=== PATIENT | male | born 1970 | race African-American/Black ===

== ENCOUNTER 2019-03-31 22:14 | Emergency (ER) | payer SELFPAY ==
--- NOTE | 2019-03-31 22:49 | ER Document Report ---
ED General - General Chief Complaint: Possible Overdose Stated Complaint: UNRESPONSIVE Time Seen by Provider: 03/31/19 22:35 Primary Care Provider: [facility] [Provider Group] - Follow up as needed [facility] [Provider Group] - Follow up in 1 week Notes: Patient is a 48-year-old male that comes to the emergency department for chief complaint of an episode where his states he was pointing at his throat, then he appeared to pass out, she states she caught him and called the ambulance. She denies him falling to the ground. Ambulance report that he was not responding to them by answering, his pupils seemed somewhat pinpoint so they gave him 4 mg of Narcan, they state that this seemed to help some but patient is still not answering any questions. On my evaluation patient is sleeping but arousable, when I speak to him he will answer by nodding yes or no, I asked if he is trying to speak, he nods yes, I asked him if his throat hurts, he shakes his head no, I asked him if it is difficult to breathe he shakes his head no. He is not drooling. His states that he had a couple of beers today, at bedside denies that he uses any drugs or has known medical problems. TRAVEL OUTSIDE OF THE [place] IN LAST 30 DAYS: No - Related Data Allergies/Adverse Reactions: No Known Drug Allergies Allergy (Verified 03/31/19 22:55) Past Medical History - General Information source: Relative - Social History Smoking Status: Never Smoker Frequency of alcohol use: None Drug Abuse: None Lives with: Family Family History: Reviewed & Not Pertinent Review of Systems - Review of Systems Constitutional: No symptoms reported EENT: See HPI Cardiovascular: See HPI Respiratory: No symptoms reported Gastrointestinal: No symptoms reported Genitourinary: No symptoms reported Male Genitourinary: No symptoms reported Musculoskeletal: No symptoms reported Skin: No symptoms reported Hematologic/Lymphatic: No symptoms reported Neurological/Psychological: See HPI Physical Exam - Vital signs Vitals: Temp Resp Pulse Ox 98.6 F 25 H 100 03/31/19 22:22 03/31/19 22:22 03/31/19 22:22 - Notes Notes: GENERAL: Alert, anxious, following directions but not speaking HEAD: Normocephalic, atraumatic. EYES: Pupils equal, round, and reactive to light. Extraocular movements intact. ENT: Oral mucosa moist, tongue midline. Oropharynx unremarkable. Airway patent. Nares patent, no nasal septal hematoma, TM's intact. NECK: Full range of motion. Supple. Trachea midline. LUNGS: Clear to auscultation bilaterally, no wheezes, rales, or rhonchi. No respiratory distress. HEART: Regular rate and rhythm. No murmur ABDOMEN: Soft, non-tender. Non-distended. Bowel sounds present in all 4 quadrant s. GENITOURINARY: Deferred EXTREMITIES: Moves all 4 extremities spontaneously. No edema, normal radial and dorsalis pedis pulses bilaterally. No cyanosis. BACK: Complains of palpation over the lumbar area generally but there is no trauma to the area noted. Normal cervical and thoracic exams. No saddle anesthesia, normal distal neurovascular exam. NEUROLOGICAL: Alert Cranial nerves II through XII grossly intact. PSYCH: Anxious SKIN: Warm, dry, normal turgor. No rashes or lesions noted. Course - Re-evaluation Re-evalutation: Patient's airway appears patent without soft tissue swelling suggesting anaphylaxis. Patient is taking good full breaths, he is not hypoxic or tachypneic, however he does appear to be trying to speak and he began to be tearful when he appeared to not be able to speak. He also appears very anxious. He has not a remaining neurological exam is normal. He is responsive and follows all directions. CAT scan of the head will be performed along with general work-up for syncope. 04/01/19 EKG showing sinus rhythm at a rate of 59. There is some ST elevation in the anterior leads, could be J-point elevation with some LVH. Patient did not have any chest pain, patient denies chest pain on exam. This was repeated after discussion with Dr. helms it, repeat does not show any concerning change, is s lightly different but appears to be only from lead placement. Troponin was negative. Again patient did not complain of any chest pain on my evaluations or before event. CBC unremarkable, chemistry unremarkable, urine drug screen is negative, CAT scan of the head was negative, chest x-ray unremarkable. Patient is very intoxicated with alcohol of 250. I went back into the room and now patient is speaking. I discussed work-up, discussed EKG, discussed alcohol level. Patient agreed when I reported his alcohol level, appeared very surprised. I suspect this alcohol intoxication was strongly contributing to the patient's behavior. Patient has received IV fluids and has been monitored with reevaluation's. He now is acting normal. He and are both requesting to go home. He has no current complaints other than back pain from lying in bed. He had asked for an x-ray and this was performed and showed some arthritis but was otherwise unremarkable, his back pain examination is very unremarkable. Discussed return precautions, they state satisfaction and agreement. - Vital Signs Vital signs: Temp Pulse Resp BP Pulse Ox 98.7 F 65 18 130/76 H 95 04/01/19 01:00 04/01/19 01:00 04/01/19 01:00 04/01/19 01:00 04/01/19 01:00 - Laboratory Result Diagrams: 03/31/19 22:22 03/31/19 22:22 Laboratory results interpreted by me: 03/31/19 03/31/19 22:22 22:22 MCV 99 H Seg Neutrophils % 38.6 L Lymphocytes % 50.9 H Carbon Dioxide 21 L Discharge - Discharge Clinical Impression: Alcohol intoxication Qualifiers: Complication of substance-induced condition: with unspecified complication Qualified Code(s): F10.929 - Alcohol use, unspecified with intoxication, unspecified Back pain Qualifiers: Back pain location: low back pain Chronicity: acute Back pain laterality: midline Sciatica presence: without sciatica Qualified Code(s): M54.5 - Low back pain Episode of syncope Qualifiers: Syncope type: unspecified Qualified Code(s): R55 - Syncope and collapse Condition: Stable Disposition: HOME, SELF-CARE Additional Instructions: Avoid drinking alcohol to intoxication. Take [id number] anti-inflammatories or acetaminophen for back pain if needed, you do have arthritis in your back. Follow-up with primary care for additional evaluation and management. Return if you worsen including passing out again, pain in your chest, severe pain in any location, vomiting, or any other concerning symptoms. Forms: Return to Work Referrals: [facility] [Provider Group] - Follow up as needed [facility] [Provider Group] - Follow up in 1 week
[2019-03-31 22:53] LABS: ABSOLUTE BASOPHILS # (AUTO) 0.1 10^3/uL (0.0-0.2); ABSOLUTE EOSINOPHILS # (AUTO) 0.2 10^3/uL (0.0-0.6); ABSOLUTE LYMPHOCYTES (AUTO) 4.1 10^3/uL (0.5-4.7); ABSOLUTE MONOCYTES (AUTO) 0.6 10^3/uL (0.1-1.4); ABSOLUTE NEUT (AUTO) 3.1 10^3/uL (1.7-8.2); BASOPHILS % (AUTO) 0.7 % (0-2); EOSINOPHILS % (AUTO) 2.5 % (0-6); HEMATOCRIT 44.5 % (37.9-51.0); HEMOGLOBIN 15.1 g/dL (13.5-17.0); LYMPHOCYTES % (AUTO) 50.9 % (13-45); MEAN CORPUSCULAR HEMOGLOBIN 33.3 pg (27.0-33.4); MEAN CORPUSCULAR HGB CONC 33.8 g/dL (32.0-36.0); MEAN CORPUSCULAR VOLUME 99 fl (80-97); MONOCYTES % (AUTO) 7.3 % (3-13); PLATELET COUNT 255 10^3/uL (150-450); RED BLOOD COUNT 4.52 10^6/uL (4.35-5.55); RED CELL DISTRIBUTION WIDTH 13.9 % (11.5-14.0); SEGMENTED NEUTROPHILS % (AUTO) 38.6 % (42-78); TOTAL CELLS COUNTED % (AUTO) 100 %
[2019-03-31 22:58] LABS: ALANINE AMINOTRANSFERASE 52 U/L (21-72); ALBUMIN 4.7 g/dL (3.5-5.0); ALCOHOL 250 mg/dL (NONE DETECTED); ALKALINE PHOSPHATASE 66 U/L (38-126); ANION GAP 17 (5-19); ASPARTATE AMINO TRANSFERASE 51 U/L (17-59); BILIRUBIN,DIRECT 0.2 mg/dL (0.0-0.4); BILIRUBIN,TOTAL 0.2 mg/dL (0.2-1.3); BLOOD UREA NITROGEN 14 mg/dL (7-20); CARBON DIOXIDE 21 mmol/L (22-30); CHLORIDE 100 mmol/L (98-107); GLUCOSE 98 mg/dL (75-110); POTASSIUM 3.8 mmol/L (3.6-5.0); SODIUM 137.6 mmol/L (137-145); TOTAL PROTEIN 7.7 g/dL (6.3-8.2)
[2019-03-31 23:08] LABS: URINE AMPHETAMINES SCREEN NEGATIVE; URINE BARBITURATES SCREEN NEGATIVE; URINE BENZODIAZEPINES SCREEN NEGATIVE; URINE COCAINE SCREEN NEGATIVE; URINE MARIJUANA (THC) SCREEN NEGATIVE; URINE METHADONE SCREEN NEGATIVE; URINE PHENCYCLIDINE SCREEN NEGATIVE
[2019-03-31] MEDS ORDERED: NORMAL SALINE 1000 ML 1,000 ML IV ONE (23:09)
--- NOTE | 2019-03-31 23:19 | RADIOLOGY REPORT (SQ) ---
EXAM DESCRIPTION: CT HEAD WITHOUT IV CONTRAST COMPLETED DATE/TME: 03/31/2019 22:44 CLINICAL HISTORY: 48 years, Male, AMS COMPARISON: None Available. Technique: Contiguous axial images of the brain were obtained without the administration of intravenous contrast. Coronal and sagittal reformats obtained and reviewed. This exam was performed according to our departmental dose-optimization program which includes use of Automated Exposure Control, adjustment of the mA and/or kV according to patient size and/or use of iterative reconstruction technique. Findings: Brain: No hemorrhage. No territorial infarct. No mass effect. No herniation. Ventricles: Within normal limits for patient's age. Bones: No acute osseous abnormality. Paranasal sinuses: Unremarkable. Mastoid air cells: Unremarkable. Soft tissues: No acute abnormality. IMPRESSION: No acute intracranial abnormalities.
--- NOTE | 2019-03-31 23:26 | RADIOLOGY REPORT (SQ) ---
EXAM DESCRIPTION: XR CHEST 1 VIEW COMPLETED DATE/TME: 03/31/2019 22:43 CLINICAL HISTORY: 48 years, Male, rapid breathing, unresponsive, ?syncopal episode Comparison: None FINDINGS: No focal lung consolidation. No pleural effusion. No pneumothorax. Cardiac and mediastinal silhouette is unremarkable. No acute osseous abnormality. Soft tissues are unremarkable. IMPRESSION: No acute findings. No focal lung consolidation.
--- NOTE | 2019-03-31 23:42 | RADIOLOGY REPORT (SQ) ---
EXAM DESCRIPTION: [facility]: XR LUMBAR SPINE ANTEROPOSTERIOR, LATERAL, AND OBLIQUES Views: 2 CLINICAL HISTORY: 48 years Male, lower back pain COMPARISON: None. FINDINGS: Alignment is anatomic. Vertebral heights and disc spaces are preserved. There are minimal degenerative endplate changes. No acute fracture. No focal lytic or blastic lesions. IMPRESSION: 1. No acute fracture or subluxation. 2. Minimal degenerative endplate changes.
[2019-04-01] MEDS ORDERED: KETOROLAC TROMETHAMINE INJ/PF 30 MG/1 ML SDV IV ONE (00:38)
[2019-04-01] MEDS ORDERED: ONDANSETRON HCL INJ/PF 4 MG/2 ML SDV IV ONE (00:40)
[2019-04-01 01:08] VITALS: BP 130/76
--- NOTE | 2019-04-01 22:39 | EKG REPORT ---
SEVERITY:- ABNORMAL ECG - SINUS RHYTHM NONSPECIFIC INTRAVENTRICULAR CONDUCTION DELAY ANTERIOR INFARCT, ACUTE .CORELATE CLLINICALLY : Confirmed by: Zoë Guardado MD 01-Apr-2019 22:38:59
--- NOTE | 2019-04-02 07:59 | EKG REPORT ---
SEVERITY:- ABNORMAL ECG - SINUS RHYTHM ST ELEVATION SUGGESTS EARLY REPOLARISATION CHANGES : Confirmed by: Zoë Guardado MD 02-Apr-2019 07:58:21
== END 2019-04-01 01:09 | disposition home or self-care (01) ==
LOC: ER 22:14 → EDBD 22:14 → ER 04-01 01:09
DX: F10.129 Alcohol abuse with intoxication, unspecified (principal); Y90.8 Blood alcohol level of 240 mg/100 ml or more; R55 Syncope and collapse; M47.9 Spondylosis, unspecified; M54.5 Low back pain
CPT/HCPCS: 93005 ×2; 99285; 96360; 36415; 82962; 80307 ×2; 85025; 80053; 84484; 71045; 72110; 70450; 93010 ×2; J7030